=== PATIENT | female | born 1935 | race Caucasian/White ===

== ENCOUNTER → 2016-11-29 | Outpatient (CLI) | payer BC, OTHER ==
[~2016-11-29] MED LIST: ASCO10003 PO; BIOTCAP2 PO; CALC-279; CALC600T37 PO; CALCTAB5 PO; CARV25TA2 PO; CHOL1CAP57 PO; COEN100C7 PO; CYAN10005 PO; GLUCTAB7 PO; IODI1TAB PO; LISI-725 PO; MAGN200T3 PO; MAGN400T6 PO; MAGNESIUM PO; MISCCAP8 PO; MULT-770 PO; NIAC1TAB3 PO; OMEG10007 PO; PANT40TA PO; PRAMCRE2 TOP; RHOD300C PO; SENNTAB23 PO; SIMV40TA2 PO; THIA100T11 PO; VITATAB19 PO; WARF2TAB PO; ZINC30TA3 PO; [UNRECOGNIZED DRUG - CODE] PO; [UNRECOGNIZED DRUG - OTHER] PO; strontium citrate PO
== END | disposition home or self-care (01) ==
LOC: C.RDSM 13:15
PROVIDERS: ATTEND Physical Medicine & Rehabilitation Sports Medicine
DX: M16.12 Unilateral primary osteoarthritis, left hip (principal); Z96.642 Presence of left artificial hip joint

== ENCOUNTER → 2016-12-06 | Outpatient (CLI) | payer BC ==
[2016-12-06 12:19] LABS: URINE APPEARANCE CLEAR (CLEAR); URINE BILIRUBIN NEG (NEG); URINE COLOR DK YELLOW; URINE EPITHELIAL CELL AUTO 20-30 /lpf (0-5); URINE NITRITE NEG (NEG); URINE PH 6.5 (4.5-7.5); URINE SPECIFIC GRAVITY 1.027 (1.000-1.030); UROBILINOGEN NEG (NEG)
[2016-12-06 12:20] LABS: MANUAL MICROSCOPIC REQUIRED? NO; REVIEW REQ? NO
[2016-12-06 12:57] LABS: URINE PROTIEN/CREAT RATIO 0.1 (0-0.2); URINE TOTAL PROTEIN 17.1 mg/dl (0-11.9)
[2016-12-06 13:34] LABS: BLOOD UREA NITROGEN 29 mg/dl (7-18); BUN/CREATININE RATIO 22.6 (10-20); CARBON DIOXIDE 32 mmol/L (21-32); CHLORIDE 102 mmol/L (98-107); GLUCOSE 93 mg/dl (70-99); POTASSIUM 4.6 mmol/L (3.5-5.1); SODIUM 140 mmol/L (136-145)
[2016-12-06 13:35] LABS: PHOSPHORUS 4.1 mg/dl (2.5-4.9)
[2016-12-06 13:37] LABS: CALCIUM 9.5 mg/dl (8.5-10.1)
== END | disposition home or self-care (01) ==
LOC: C.LAB 10:53
PROVIDERS: ATTEND Internal Medicine Nephrology
DX: N18.3 Chronic kidney disease, stage 3 (moderate) (principal)

== ENCOUNTER → 2017-02-07 | Outpatient (CLI) | payer BC ==
[~2017-02-07] MED LIST changes: +OPTIRAY 320 IV PRN
--- NOTE | 2017-02-07 14:14 | DIAGNOSTIC IMAGING REPORT ---
ABDOMEN AND PELVIS CT WITH IV AND ORAL CONTRAST CT DOSE: 543.36 mGycm HISTORY: Follow-up follicular lymphoma. TECHNIQUE: Multiaxial CT images of the abdomen and pelvis were performed following the use of intravenous and oral contrast. COMPARISON STUDY: Abdomen and pelvis CT 07/12/2016. FINDINGS: The lung bases are essentially clear. Left total hip arthroplasty. No suspicious lytic or blastic osseous lesions. Severe central canal narrowing at the L4-5 level with associated grade I anterolisthesis. This is also unchanged. Small hiatus hernia. Stable 1.5 cm hypodense lesion within segment 2 of the liver. The gallbladder is decompressed. The spleen is normal in size. Normal adrenal glands. Stable bilateral renal hypodense lesions within largest in the upper pole the left kidney measuring 1 cm. No hydronephrosis. Multiple small calcified mesenteric lymph nodes, unchanged. No retroperitoneal or mesenteric lymphadenopathy. The uterus is surgically absent. Bladder is now well-visualized due to the metallic artifact from the left hip prosthesis. Colonic diverticulosis. No definite bowel wall thickening or obstruction. Normal appendix. No pelvic lymphadenopathy. Stable 1 cm cystic lesion within the body of the pancreas. There is also stable 7 mm cystic lesion within the pancreatic tail. IMPRESSION: No change compared to the prior study. No pathologically enlarged lymph nodes. Additional findings as described above. Electronically signed by: Dick Charles M.D. 02/07/2017 2:12 PM Dictated Date/Time: 02/07/2017 2:05 PM
== END | disposition home or self-care (01) ==
LOC: C.CTS 13:03
PROVIDERS: ATTEND Nurse Practitioner Family
DX: C82.20 Follicular lymphoma grade III, unspecified, unspecified site (principal)

== ENCOUNTER → 2017-02-09 | Outpatient (CLI) | payer BC ==
[~2017-02-09] MED LIST changes: -OPTIRAY 320 IV PRN
[2017-02-09 13:23] LABS: BASO % 0.2 %; BASO ABS # 0.01 K/uL (0-0.2); COMPLETE YES; EOS % 1.9 %; IG% 0.2 %; LYMPH % 10.9 %; LYMPH ABS # 0.64 K/uL (1.2-3.4); MEAN CELL VOLUME 95.6 fL (80-100); MEAN CORPUSCULAR HEMOGLOBIN 31.3 pg (25-34); MEAN CORPUSCULAR HGB CONC 32.7 g/dl (32-36); MEAN PLATELET VOLUME 10.3 fL (7.4-10.4); MONO % 9.5 %; NEUT % 77.3 %; PLATELET COUNT 187 K/uL (130-400); RED BLOOD COUNT 3.87 M/uL (4.2-5.4); WHITE BLOOD COUNT 5.89 K/uL (4.8-10.8)
[2017-02-09 14:06] LABS: ALT/SGPT 31 U/L (12-78); BLOOD UREA NITROGEN 26 mg/dl (7-18); BUN/CREATININE RATIO 21.8 (10-20); CARBON DIOXIDE 29 mmol/L (21-32); CHLORIDE 103 mmol/L (98-107); GLUCOSE 100 mg/dl (70-99); POTASSIUM 4.1 mmol/L (3.5-5.1); SODIUM 141 mmol/L (136-145)
[2017-02-09 14:09] LABS: CALCIUM 9.2 mg/dl (8.5-10.1)
[2017-02-09 14:10] LABS: ALB/GLOB RATIO 1.2 (0.9-2); ALKALINE PHOSPHATASE 60 U/L (45-117); AST/SGOT 21 U/L (15-37)
== END | disposition home or self-care (01) ==
LOC: C.LAB1850 11:27
PROVIDERS: ATTEND Internal Medicine
DX: C82.20 Follicular lymphoma grade III, unspecified, unspecified site (principal); M81.0 Age-related osteoporosis without current pathological fracture

== ENCOUNTER 2017-03-28 12:32 | Emergency (ER) | payer BC ==
[~2017-03-28] VITALS: Ht 157.5 cm; Wt 58.0 kg
[~2017-03-28 12:32] MED LIST changes: -CALC-279; -CALC600T37 PO; -COEN100C7 PO; -GLUCTAB7 PO; -MAGN400T6 PO; -MISCCAP8 PO; -MULT-770 PO; -OMEG10007 PO; -RHOD300C PO; -[UNRECOGNIZED DRUG - CODE] PO; -strontium citrate PO
[2017-03-28 12:35] VITALS: TEMP 36.8; Ht 157.5 cm; Wt 58.0 kg
[2017-03-28] MEDS ORDERED: LIDOCAINE/EPINEPH/TETRACAINE 1 EA SYR EXT SCH (13:00)
--- NOTE | 2017-03-28 13:13 | DIAGNOSTIC IMAGING REPORT ---
CT HEAD WITHOUT CONTRAST (CT) CLINICAL HISTORY: Closed head injury. Head pain. Laceration above the right eyebrow. COMPARISON STUDY: 06/10/2015 TECHNIQUE: Axial CT of the brain is performed from the vertex to the skull base. IV contrast was not administered for this examination. A dose lowering technique was utilized adhering to the principles of ALARA. CT DOSE: 537.48 mGy.cm FINDINGS: No intra or extra-axial mass lesions are visualized. There is no CT evidence of acute cortical infarction. There is no evidence of midline shift. There is no acute hemorrhage. No calvarial fractures are visualized. There are patchy white matter hypodensities likely on a small vessel basis. There is no evidence of pathologic ventricular dilatation. There is no evidence of acute sinusitis. 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 IMPRESSION: No acute intracranial findings Electronically signed by: Sascha Guzman M.D. 03/28/2017 1:12 PM Dictated Date/Time: 03/28/2017 1:10 PM
[2017-03-28] MEDS ORDERED: CALC600T37 PO (13:38)
[2017-03-28] MEDS ORDERED: MAGN400T6 PO (13:38)
--- NOTE | 2017-03-28 14:05 | EMERGENCY ROOM VISIT NOTE ---
ED Visit Note First contact with patient: 12:45 I have personally evaluated this patient examined her and reviewed the pertinent labs and data. I have discussed the case with Brennan Rogers, the physician executive assistant to general counsel and agree with the plan. Please refer to the PA note This patient suffered a mechanical fall. She has a small laceration lateral to her right eye. On my exam she has intact neurologic exam was exception of some mild aphasia which she says is been chronic and her doctor has worked her up for an think. She had a stroke several months ago there are no new neurologic deficits today. Laceration repaired and she was discharged home.
[2017-03-28 14:38] VITALS: BP 158/88; PULSE 57; O2SAT 97
--- NOTE | 2017-03-28 15:56 | EMERGENCY ROOM VISIT NOTE ---
History First contact with patient: 12:45 Chief Complaint: FALL Stated Complaint: FALL History of Present Illness The patient is a 81 year old female who presents to the Emergency Room with her with complaints of injuries after she tripped on a sheet in her bathroom and fell, striking her head on a toilet. The injury happened approximately 35 minutes prior to arrival. She denies any loss of consciousness , but does report a right frontal headache, and laceration to her right eyebrow. She denies any neck pain, extremity pain or other injuries from this fall. The patient does not take any blood thinners. She rates her discomfort a 5 out of 10. She has not taken any medicine for her pain. Review of Systems 10 system review was performed and was negative except for pertinent positives and negatives as indicated in history of present illness Past Medical/Surgical History Medical Problems: (1) DJD (degenerative joint disease) of hip (2) Hypertension (3) Non Hodgkin's lymphoma (4) Spinal stenosis Family History Omitted due to age Social History Smoking Status: Never Smoker Drug Use: none Marital Status: Housing Status: lives with significant other Occupation Status: retired Current/Historical Medications Scheduled Ascorbic Acid (Vitamin C), 1 TAB PO QAM Biotin (Biotin 5000), 5 MG PO QAM Calcium (Calcium), 1,200 MG PO DAILY Carvedilol (Coreg), 25 MG PO BID Cholecalciferol (Vitamin D3), 2,000 UNITS PO QAM Cyanocobalamin (Vitamin B-12), 1,000 MCG PO QAM Iodine (Kelp) (Kelp), 225 MG PO QAM Lisinopril (Zestril), 10 MG PO BID Magnesium (Magnesium), 1 TABS PO TIDM Magnesium Oxide (Mag-Ox), 400 MG PO HS Niacinamide (Niacin), 500 MG PO QPM Pantoprazole (Protonix), 40 MG PO Q2D Sennosides-Docusate Sodium (Stool Softener), 1 TAB PO PRN Thiamine Hcl (Vitamin B-1), 100 MG PO QPM Vitamin A-Beta Carotene (Vitamin A), 10,000 UNITS PO Q2D Zinc Gluconate (Zinc), 30 MG PO QPM [Stronium Citrate], 1 TAB PO TID Physical Exam Vital Signs Date Time Temp Pulse Resp B/P (MAP) Pulse Ox O2 Delivery O2 Flow Rate FiO2 8// 14:38 57 17 158/88 97 03/28/17 12:35 36.8 71 18 156/92 97 Physical Exam CONSTITUTIONAL: Healthy and well nourished. Alert and oriented X 3 with positive affect. GCS 15. The patient does not appear in any acute distress. HEENT: Examination shows a 2 cm laceration lateral to the right eyebrow. It is vertical in orientation without any active bleeding or hematoma formation. The patient has no focal tenderness to palpation of the temporal bone or periorbital region. Pupils equal, round and reactive. EOMs intact without evidence for entrapment. No epistaxis, hemotympanum, raccoon's eyes or Asher sign. NECK: Full active range of motion without discomfort. RESPIRATORY: Clear to auscultation bilaterally with no wheezing, crackles, rhonchi or stridor. CARDIOVASCULAR: Regular rate and rhythm with no murmurs, rubs or gallops. MUSCULOSKELETAL: Full range of motion of all joints without discomfort. INTEGUMENTARY: No rash or other significant dermatologic conditions noted. NEUROLOGIC: No focal neurologic deficits noted. Normal finger to nose test. Negative pronator drift. Facial sensations are intact. Medical Decision & Procedures ER Provider Diagnostic Interpretation: Noncontrast CT of the head does not show any acute fractures or intracranial bleed. Radiologist report is as follows: CT HEAD WITHOUT CONTRAST (CT) CLINICAL HISTORY: Closed head injury. Head pain. Laceration above the right eyebrow. COMPARISON STUDY: 06/10/2015 TECHNIQUE: Axial CT of the brain is performed from the vertex to the skull base. IV contrast was not administered for this examination. A dose lowering technique was utilized adhering to the principles of ALARA. CT DOSE: 537.48 mGy.cm FINDINGS: No intra or extra-axial mass lesions are visualized. There is no CT evidence of acute cortical infarction. There is no evidence of midline shift. There is no acute hemorrhage. No calvarial fractures are visualized. There are patchy white matter hypodensities likely on a small vessel basis. There is no evidence of pathologic ventricular dilatation. There is no evidence of acute sinusitis. 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 IMPRESSION: No acute intracranial findings Medications Administered Medications (Trade) Dose Ordered Sig/Kishor Route Start Time Stop Time Status Last Admin Dose Admin Tetracaine/ Epinephrine/ Lidocaine (L.e.t. Gel 4%/ 1:100/0.5%) 1 ea ONE EXT 03/28/17 13:00 03/28/17 14:56 DC 03/28/17 12:59 1 EA Procedure Laceration repair was performed under local anesthesia, and after receiving verbal consent from the patient. LET gel was applied. After adequate anesthesia, the peripheral tissue was then cleansed with iodine, then the wound was irrigated with normal saline. Good hemostasis was maintained. The wound was then approximated using 6-0 nylon simple interrupted sutures. Bacitracin was applied to the wound. ED Course Patient history and physical exam were performed. Nurse's notes were reviewed. Vital signs were reviewed, showing an elevated blood pressure of 156/92. The patient does report a history of hypertension. She was instructed to follow-up with her PCP for blood pressure recheck. The patient refused any analgesics. Noncontrast CT of the head was normal. Laceration repair was performed under local anesthesia. The patient was provided additional verbal and written wound care instructions. Ice for swelling. Tylenol as needed for pain. Suture removal in 5-7 days, or seek reevaluation sooner for any signs of infection. The patient was happy with plan of care, and denied any discomfort at the time of discharge. The patient was also seen and examined by Dr. Quiros, ED attending physician, who agrees with workup and plan of care. Medical Decision Head Trauma GCS Score: 15 Medication Reconcilliation Current Medication List: was personally reviewed by me Impression Primary Impression: Facial laceration Additional Impressions: Fall from slip, trip, or stumble Elevated blood pressure reading in office with diagnosis of hypertension Departure Information Referrals Nj Rod M.D. (PCP) Patient Instructions My [facility] Problem Qualifiers Primary Impression: Facial laceration Encounter type: initial encounter Qualified Codes: S01.81XA - Laceration without foreign body of other part of head, initial encounter Additional Impressions: Fall from slip, trip, or stumble Encounter type: initial encounter Qualified Codes: W01.0XXA - Fall on same level from slipping, tripping and stumbling without subsequent striking against object, initial encounter
[2017-04-12] MEDS ORDERED: CALC-279 (13:27)
[2017-04-12] MEDS ORDERED: [UNRECOGNIZED DRUG - CODE] PO (13:27)
[2017-04-12] MEDS ORDERED: COEN100C7 PO (13:27)
[2017-04-12] MEDS ORDERED: OMEG10007 PO (13:27)
[2017-04-12] MEDS ORDERED: GLUCTAB7 PO (13:27)
[2017-04-12] MEDS ORDERED: strontium citrate PO (13:27)
[2017-04-12] MEDS ORDERED: PANT40TA PO (13:27)
[2017-04-12] MEDS ORDERED: RHOD300C PO (13:27)
[2017-04-12] MEDS ORDERED: MISCCAP8 PO (13:27)
[2017-04-12] MEDS ORDERED: MULT-770 PO (13:27)
== END 2017-03-28 14:41 | disposition home or self-care (01) ==
LOC: C.EDB 12:32 → C.EDD 14:41
DX: S01.81XA Laceration without foreign body of other part of head, initial encounter (principal); W01.198A Fall on same level from slipping, tripping and stumbling with subsequent striking against other object, initial encounter; Y92.002 Bathroom of unspecified non-institutional (private) residence as the place of occurrence of the external cause; R03.0 Elevated blood-pressure reading, without diagnosis of hypertension; I10 Essential (primary) hypertension; Z85.72 Personal history of non-Hodgkin lymphomas; Z79.899 Other long term (current) drug therapy

== ENCOUNTER → 2017-04-12 | Outpatient (CLI) | payer BC ==
[~2017-04-12] MED LIST changes: +CALC-279; +CALC600T37 PO; -CALCTAB5 PO; +COEN100C7 PO; +GLUCTAB7 PO; +MAGN400T6 PO; -MAGNESIUM PO; +MISCCAP8 PO; +MULT-770 PO; +OMEG10007 PO; -PRAMCRE2 TOP; +RHOD300C PO; -SIMV40TA2 PO; -WARF2TAB PO; +[UNRECOGNIZED DRUG - CODE] PO; +strontium citrate PO
[2017-04-12 13:07] VITALS: BP 118/72; PULSE 76; TEMP 37.2; O2SAT 96
--- NOTE | 2017-04-12 17:27 | Radiation Oncology Follow-Up ---
Radiation Oncology Follow-Up Date of Visit Apr 12, 2017. Reason For Visit Annual follow-up Radiation Completion Date 2012 Diagnosis (1) Non Hodgkin's lymphoma Status: Resolved Onset Date: 03/2013 Permanent Comment: Abnormal abdominal CT revealing a left periaortic mass encasing the left renal vein Biopsy positive for follicular lymphoma Status post completion of radiation therapy 06/15/2013. She received 3600 cGy Status post maintenance Rituxan Last Edited By: Caren Kumar on Apr 12, 2017 17:20 History of Present Illness Ms. Barbosa is a 81-year-old female who presented in October of this year to Dr. Rod with a complaint of symptoms of an upper respiratory tract infection. A chest x-ray was taken on November 17, 2012. This showed bilateral thickening of the apices and possible interstitial infiltrate or scarring on the right. A chest CT scan was performed on November 24, 2012. This showed scattered right greater than left subpleural areas of nodularity or scarring with bilateral apical scarring. With no evidence of focal infiltrate in the right upper lung. An irregular focal infiltrate versus scarring or atypical atelectasis was noted in the medial right lower lobe. Followup studies were recommended. A repeat CT scan of the chest was taken on February 28, 2013. This showed interval resolution of the previously described right lower lobe air space opacity. However, the left periaortic mass-like abnormality was noted encasing the left renal vein. This measured approximately 3.9 x 2.5 cm. This was suspicious for neoplastic process such as lymphoma or metastatic disease. A CT scan of the abdomen and pelvis was recommended. A stable subcentimeter pancreatic tail lesion was noted. This was a low suspicious lesion. On March 06, 2013, a CT scan of the abdomen and pelvis with IV contrast was performed. The pancreas showed a 9 mm water attenuation lesion. The lower chest was unremarkable. A moderate hiatal hernia was noted. The liver was unremarkable with a 1.6 cm cyst in the lateral left lobe. Gallbladder, spleen, were unremarkable as was the adrenal glands. The kidneys were unremarkable as was the bowel and peritoneum. The retroperitoneum, however, revealed an irregular soft tissue lesion in the left retroperitoneal space encasing approximately 50% of the circumference of the abdominal aorta as well as the left renal artery and vein. There are mildly enlarged retroperitoneal lymph nodes seen more inferiorly. Pelvis and skeletal structures are unremarkable. These lesions were suspicious for a neoplasm and a biopsy was recommended. Given the location of this lesion. They patient was felt to be better served going to [place] for a biopsy. This was performed on April 03, 2013. The soft tissue from the left periaortic mass fine needle aspiration biopsy revealed atypical lymphocytes. A core needle biopsy revealed a B-cell non-Hodgkin's lymphoma low grade. Flow studies were performed. 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 The patient was subsequently treated with radiation therapy in May 2013 and has been on maintenance Rituxan. Interim History She has been doing well over the past year in regards to the prior treatment. She denies any abdominal pain or discomfort. She's had no nausea or vomiting. No problems with change in bowel habits. She has been followed by medical oncology and has had recheck scanning. She had a CT of the abdomen and pelvis 02/07/2017. This showed no change compared to prior study. No pathologically enlarged lymph nodes. Allergies Coded Allergies: NEYMAR Inhibitors (Verified Allergy, Unknown, PER RECORDS- PT HAS NO RECOLLECTION- TOLERATES LISINOPRIL, 04/07/16) Naproxen (Verified Allergy, Unknown, RASH, 04/07/16) Raloxifene (Verified Allergy, Unknown, COUGH, 04/07/16) Home Medications Scheduled Ascorbic Acid (Vitamin C), 1 TAB PO QAM Biotin (Biotin 5000), 1,000 MG PO QAM Carvedilol (Coreg), 25 MG PO BID Cholecalciferol (Vitamin D3), 1,000 UNITS PO QAM Coenzyme Q10 (Ubidecarenone) (Coq10), 120 MG PO DAILY Fish Oil (Greenbush-3), 1 CAP PO BID Kjwtsialrvz-Srqogvlbvwq-Eeo C- (Glucosamine Chondroitin), 2 TAB PO BID Iodine (Kelp) (Kelp), 225 MG PO QAM Lisinopril (Zestril), 10 MG PO BID Magnesium Oxide (Mag-Ox), 400 MG PO HS Misc Natural Products (Tart Rios Advanced), 465 MG PO DAILY Multiple Minerals W/ Vitamins (Calcium Citrate Plus/Magn), 1 TAB PO DAILY Niacinamide (Niacin), 250 MG PO QPM Pantoprazole (Protonix), 80 MG PO Q2D Rhodiola Rosea (Rhodiola), 800 MG PO BID Sennosides-Docusate Sodium (Stool Softener), 1 TAB PO PRN Vitamin A Acetate (Bulk) (Vitamin A Acetate), 8,000 UNITS PO DAILY Zinc Gluconate (Zinc), 30 MG PO QPM [Stronium Citrate], 1 TAB PO TID [strontium citrate], 350 MG PO DAILY Miscellaneous Medications Calcium Citrate-Vitamin D (Calcium Citrate + D) Review of Systems Gastrointestinal: Symptoms: Constipation, Rectal Bleeding GI Comments: Takes a magnesium tablet to manage constipation;Hemorrhoids per pt Oral: Symptoms: No Problems Respiratory: Symptoms: WNL Urinary: Symptoms: WNL Skin: Symptoms: No Problems Physical Exam Vital Signs Date Time Temp Pulse Resp B/P (MAP) Pulse Ox O2 Delivery O2 Flow Rate FiO2 04/12/17 13:07 37.2 76 16 118/72 96 Pain: Patient Pain Scale: 0 - 10 Initial Pain Intensity: 0.0 Fatigue: None General Appearance: no apparent distress, + pertinent finding (it is noted that the patient speaks very slowly. Stops frequently between words. She does answer questions accurately.) Eyes: normal inspection, EOMI ENT: normal ENT inspection, hearing grossly normal Neck: no adenopathy Respiratory/Chest: lungs clear, no respiratory distress, no accessory muscle use Cardiovascular: regular rate, rhythm, no gallop, no murmur Abdomen: non tender, soft, no organomegaly Extremities: no pedal edema Neurologic/Psychiatric: no motor/sensory deficits, alert, normal mood/affect Skin: warm/dry Laboratory Studies Test 02/09/17 11:35 White Blood Count 5.89 K/uL (4.8-10.8) Red Blood Count 3.87 M/uL (4.2-5.4) Hemoglobin 12.1 g/dL (12.0-16.0) Hematocrit 37.0 % (37-47) Mean Corpuscular Volume 95.6 fL (80-100) Mean Corpuscular Hemoglobin 31.3 pg (25-34) Mean Corpuscular Hemoglobin Concent 32.7 g/dl (32-36) Platelet Count 187 K/uL (130-400) Mean Platelet Volume 10.3 fL (7.4-10.4) Neutrophils (%) (Auto) 77.3 % Lymphocytes (%) (Auto) 10.9 % Monocytes (%) (Auto) 9.5 % Eosinophils (%) (Auto) 1.9 % Basophils (%) (Auto) 0.2 % Neutrophils # (Auto) 4.56 K/uL (1.4-6.5) Lymphocytes # (Auto) 0.64 K/uL (1.2-3.4) Monocytes # (Auto) 0.56 K/uL (0.11-0.59) Eosinophils # (Auto) 0.11 K/uL (0-0.5) Basophils # (Auto) 0.01 K/uL (0-0.2) RDW Standard Deviation 47.6 fL (36.4-46.3) RDW Coefficient of Variation 13.6 % (11.5-14.5) Immature Granulocyte % (Auto) 0.2 % Immature Granulocyte # (Auto) 0.01 K/uL (0.00-0.02) Sodium Level 141 mmol/L (136-145) Potassium Level 4.1 mmol/L (3.5-5.1) Chloride Level 103 mmol/L (98-107) Carbon Dioxide Level 29 mmol/L (21-32) Anion Gap 9.0 mmol/L (3-11) Blood Urea Nitrogen 26 mg/dl (7-18) Creatinine 1.20 mg/dl (0.60-1.20) Estimated GFR () 48.4 Estimated GFR (Non- 41.8 BUN/Creatinine Ratio 21.8 (10-20) Random Glucose 100 mg/dl (70-99) Calcium Level 9.2 mg/dl (8.5-10.1) Total Bilirubin 0.5 mg/dl (0.2-1) Aspartate Amino Transferase (AST) 21 U/L (15-37) Alanine Aminotransferase (ALT) 31 U/L (12-78) Alkaline Phosphatase 60 U/L (45-117) Lactate Dehydrogenase 240 U/L (84-246) Total Protein 7.2 gm/dl (6.4-8.2) Albumin 3.9 gm/dl (3.4-5.0) Globulin 3.3 gm/dl (2.5-4.0) Albumin/Globulin Ratio 1.2 (0.9-2) Assessment & Plan Plan: Continue regular follow-up with her primary care physician and medical oncology. We did discuss the change in the status of mentation. She states that she has noticed that she does talk slower. This was pointed out to her by other physicians. She questions the possibility of a previous CVA. She is unsure as to when the slow speech began. She did recently fall and have an injury to the head. CT scan was negative for intracranial hemorrhage. I question her as to whether he had noticed a change. He unfortunately also has memory difficulties. He does not recall change in her speech. She is seeing Dr. Rod next week. She plans discuss this with him at her next visit. Total Time In Follow-Up I spent 20 minutes speaking to the patient and performing examination. I spent 15 minutes reviewing information in completing this note. Copy To Nj Rod M.D.; Roman Alejandro MD
== END | disposition home or self-care (01) ==
LOC: C.ONC 12:50
PROVIDERS: ATTEND Physician Assistant Medical
DX: Z08 Encounter for follow-up examination after completed treatment for malignant neoplasm (principal); Z92.3 Personal history of irradiation; Z85.72 Personal history of non-Hodgkin lymphomas

== ENCOUNTER → 2017-04-18 | Outpatient (CLI) | payer BC ==
[~2017-04-18] MED LIST changes: -CALC600T37 PO; -CYAN10005 PO; -MAGN200T3 PO; -THIA100T11 PO; -VITATAB19 PO
[2017-04-18 09:37] LABS: BASO % 0.5 %; BASO ABS # 0.02 K/uL (0-0.2); COMPLETE YES; EOS % 1.8 %; HEMATOCRIT 37.6 % (37-47); LYMPH % 12.7 %; LYMPH ABS # 0.56 K/uL (1.2-3.4); MEAN CELL VOLUME 96.4 fL (80-100); MEAN CORPUSCULAR HEMOGLOBIN 30.8 pg (25-34); MEAN CORPUSCULAR HGB CONC 31.9 g/dl (32-36); MEAN PLATELET VOLUME 10.1 fL (7.4-10.4); MONO % 15.2 %; NEUT % 69.8 %; PLATELET COUNT 188 K/uL (130-400); WHITE BLOOD COUNT 4.42 K/uL (4.8-10.8)
[2017-04-18 10:01] LABS: ESTIMATED AVERAGE GLUCOSE 126 mg/dl; HA1C FLAG Normal (Normal)
[2017-04-18 10:02] LABS: ALT/SGPT 17 U/L (12-78); BLOOD UREA NITROGEN 25 mg/dl (7-18); BUN/CREATININE RATIO 20.9 (10-20); CALCIUM 9.1 mg/dl (8.5-10.1); CARBON DIOXIDE 30 mmol/L (21-32); CHLORIDE 102 mmol/L (98-107); CHOLESTEROL 270 mg/dl (0-200); GLUCOSE 99 mg/dl (70-99); POTASSIUM 4.1 mmol/L (3.5-5.1); SODIUM 139 mmol/L (136-145)
[2017-04-18 10:12] LABS: ALB/GLOB RATIO 1.1 (0.9-2); ALKALINE PHOSPHATASE 65 U/L (45-117); AST/SGOT 13 U/L (15-37); CHOLESTEROL/HDL RATIO 5.4; HDL CHOLESTEROL 50 mg/dl; LDL CHOLESTEROL CALCULATED 190 mg/dl; TRIGLYCERIDES 152 mg/dl (0-150); VERY LOW DENSITY LIPOPROT CALC 30 mg/dl
--- NOTE | 2017-04-28 08:04 | CODING QUERY MEDICAL NECESSITY ---
CQSUPPORTING DIAGNOSIS NEEDED A supporting diagnosis is required for the test/procedure performed on this patient in order for us to be reimbursed by the patient's insurance. Please provide a supporting diagnosis for the following test/procedure listed below next to the test name along with your signature. *If there is no additional diagnosis for this patient that would support the following test/procedure please document that below next to the test/procedure. Test(s)/Procedure(s) that require a supporting diagnosis: DOS 04/18/17 GLYCATED HEMOGLOBIN TEST BLOOD COUNT TEST LIPID TEST THYROID TEST Provider Signature: Date: Thank you Tessie Griffiths Health Information Management Once completed, please kindly fax back to [phone] For questions please call [phone]
== END | disposition home or self-care (01) ==
LOC: C.LAB1850 08:18
PROVIDERS: ATTEND Internal Medicine
DX: M81.0 Age-related osteoporosis without current pathological fracture (principal); R73.01 Impaired fasting glucose; I10 Essential (primary) hypertension; E78.5 Hyperlipidemia, unspecified; C85.90 Non-Hodgkin lymphoma, unspecified, unspecified site

== ENCOUNTER → 2017-04-29 | Outpatient (CLI) | payer BC ==
--- NOTE | 2017-04-29 16:17 | DIAGNOSTIC IMAGING REPORT ---
BRAIN WITHOUT CONTRAST HISTORY: Visual change. Trauma. PARKINSONISM TECHNIQUE: Multiplanar multisequence MRI of the brain was performed without the use of contrast. COMPARISON STUDY: 11/15/2013 FINDINGS: There are no areas of restricted diffusion to suggest acute infarction. The midline structures are intact. The paranasal sinuses are clear. The mastoid air cells are clear. The ventricles and sulci are within normal limits for age. There is no mass, hematoma, midline shift. The major vascular flow-voids at the skull base are well maintained. Chronic small vessel change unaltered from the prior study. IMPRESSION: Age-related change. Mild chronic small vessel change. No acute process. No change from the prior study. The above report was generated using voice recognition software. It may contain grammatical, syntax or spelling errors. Electronically signed by: Barber Donato M.D. 04/29/2017 4:15 PM Dictated Date/Time: 04/29/2017 4:13 PM
== END | disposition home or self-care (01) ==
LOC: C.MRIBC 14:33
PROVIDERS: ATTEND Internal Medicine
DX: G20 Parkinson's disease (principal)

== ENCOUNTER 2017-12-08 19:33 | Emergency (ER) | payer BC ==
[~2017-12-08] VITALS: Ht 157.5 cm; Wt 57.8 kg
[2017-12-08 19:50] VITALS: TEMP 36.8; Ht 157.5 cm; Wt 57.8 kg
[2017-12-08] MEDS ORDERED: PROPARACAINE HCL 0.5% OP SOLN 15 ML BTL ONE (20:05)
[2017-12-08] MEDS ORDERED: CIPROFLOXACIN HCL 0.3% OP SOLN 2.5 ML BTL OP STA (20:33)
[2017-12-08 20:59] VITALS: BP 157/91; PULSE 86; O2SAT 98
--- NOTE | 2017-12-08 22:25 | EMERGENCY ROOM VISIT NOTE ---
History Report prepared by Yosi: Lainey Montilla Under the Supervision of: Dr. Nahun Bernardo M.D. First contact with patient: 19:54 Chief Complaint: EYE ASSESSMENT Stated Complaint: RT EYE REDNESS, SOMETHING IN IT History of Present Illness The patient is an 82 year old female who presents to the Emergency Room with complaints of persistent right eye pain starting this afternoon. The patient reports that she put contacts in her eyes around 1515 today. Her right eye then started bothering her. She later tried to take the contact out, but removed only half of the contact. She is unsure where the other half went. She reports redness to her eye. She denies any headache, facial swelling, ear trouble, neck pain, breathing difficulty, or other complaints. She has a history of cataract surgery and dementia. The patient was at her orthopedic appointment and there was concerns that she may have a retained foreign body in the eye. She was directed to the ER. Source of History: patient, spouse/significant other Onset: this afternoon Position: eye (right) Quality: other (redness, pain) Timing: other (persistent) Associated Symptoms: No headache Review of Systems See HPI for pertinent positives and negatives. A total of six systems were reviewed and were otherwise negative. Past Medical & Surgical Medical Problems: (1) DJD (degenerative joint disease) of hip (2) Hypertension (3) Non Hodgkin's lymphoma (4) Spinal stenosis Family History Omitted due to age Social History Smoking Status: Never Smoker Drug Use: none Marital Status: Housing Status: lives with significant other Occupation Status: retired Current/Historical Medications Scheduled Ascorbic Acid (Vitamin C), 1 TAB PO QAM Biotin (Biotin 5000), 1,000 MG PO QAM Carvedilol (Coreg), 25 MG PO BID Cholecalciferol (Vitamin D3), 1,000 UNITS PO QAM Coenzyme Q10 (Ubidecarenone) (Coq10), 120 MG PO DAILY Fish Oil ([place]-3), 1 CAP PO BID Hwidurrbdwy-Zvrrfumbijo-Chw C- (Glucosamine Chondroitin), 2 TAB PO BID Iodine (Kelp) (Kelp), 225 MG PO QAM Lisinopril (Zestril), 10 MG PO BID Magnesium Oxide (Mag-Ox), 400 MG PO HS Misc Natural Products ([place] Advanced), 465 MG PO DAILY Multiple Minerals W/ Vitamins (Calcium Citrate Plus/Magn), 1 TAB PO DAILY Niacinamide (Niacin), 250 MG PO QPM Pantoprazole (Protonix), 80 MG PO Q2D Rhodiola Rosea (Rhodiola), 800 MG PO BID Sennosides-Docusate Sodium (Stool Softener), 1 TAB PO PRN Vitamin A Acetate (Bulk) (Vitamin A Acetate), 8,000 UNITS PO DAILY Zinc Gluconate (Zinc), 30 MG PO QPM [Stronium Citrate], 1 TAB PO TID [strontium citrate], 350 MG PO DAILY Miscellaneous Medications Calcium Citrate-Vitamin D (Calcium Citrate + D) Allergies Coded Allergies: NEYMAR Inhibitors (Verified Allergy, Unknown, PER RECORDS- PT HAS NO RECOLLECTION- TOLERATES LISINOPRIL, 04/07/16) Naproxen (Verified Allergy, Unknown, RASH, 04/07/16) Raloxifene (Verified Allergy, Unknown, COUGH, 04/07/16) Physical Exam Vital Signs Date Time Temp Pulse Resp B/P (MAP) Pulse Ox O2 Delivery O2 Flow Rate FiO2 12/08/17 20:59 86 20 157/91 98 12/08/17 19:50 36.8 79 18 192/105 95 Room Air Physical Exam GENERAL: Awake, alert, well-appearing, in no distress HENT: Normocephalic, atraumatic. Oropharynx unremarkable. EYES: Scleral injection present on the right side. Right pupil is 6 mm and reactive. Left pupil is 3 mm and reactive. Skin around the eye is normal. NECK: Supple. No nuchal rigidity. FROM. No masses. NEURO: Normal sensorium. No sensory or motor deficits noted. SKIN: No rash or jaundice noted. Medical Decision & Procedures Medications Administered Medications (Trade) Dose Ordered Sig/Kishor Route Start Time Stop Time Status Last Admin Dose Admin Ciprofloxacin HCl (Ciprofloxacin 0.3% Op Soln) 1 drops NOW STAT OP 12/08/17 20:33 12/08/17 20:34 DC 12/08/17 20:47 1 DROPS Procedure Slit Lamp Examination Indication: eye pain, suspected foreign body The right eye was prepped with topical proparacaine. Slit lamp examination was performed in the standard fashion. Cornea appeared clear. Anterior chamber normal. Scleral injection was present. No discharge present. Fluorescein examination performed and revealed abrasions at 12 o'clock position, minimal punctate uptake along the 6-7 o'clock at lateral edge of cornea. Part of the torn contact noted. Negative Abe sign. The patient tolerated the procedure well without complication. Foreign body removal: Half of a contact piece removed with fluorescein and slit lamp by me in the standard fashion without complication. Patient tolerated this very well and felt better afterwards. Puff tonometry: IOP was average 11.5 bilaterally. ED Course 2002: The patient was evaluated in room D4B. A complete history and physical exam was performed. Slit lamp examination, foreign body removal, and puff tonometry was performed as above. I discussed results and discharge instructions : they verbalized understanding and agreement. The patient is ready for discharge. 2032: Ciprofloxacin HCl 1 drop OP. Medical Decision Prior records/ancillary studies reviewed. Triage Nursing notes reviewed and agree them. Additional history obtained from her The patient's history was concerning for eye complaints. Differential diagnosis: Etiologies such as~a trauma, corneal abrasion, corneal ulcer, foreign body, globe penetration, hyphema, hypopyon, and orbital cellulitis, periorbital cellulitis, glaucoma, as well as others were entertained. Physical examination findings: As above.~ Slit-lamp examination revealed corneal abrasion, scleral injection, and a retained foreign body ER treatment provided: Foreign body removal Proparacaine Cipro ophthalmic Patient is doing very well. She has had cataract surgery in the past. She definitely has irritation of her eye. There was asymmetry of her pupils but she has no headache or other neurologic complaints at this time. She will need close outpatient follow-up with her skiver heel tap. She will call the office tomorrow. By the evaluation outlined above emergent etiologies such as glaucoma, corneal ulcer, globe penetration, hyphema, hypopyon, and orbital cellulitis, periorbital cellulitis, as well as others were deemed relatively unlikely. The patient and were informed about the findings as listed above. All questions were answered and they were pleased with the treatment. Return instructions were outlined and the patient was discharged in stable condition. Outpatient prescription management: Cipro Referral: The patient was referred to ophthalmology for follow-up for a recheck of the current condition. Medication Reconcilliation Current Medication List: was personally reviewed by me Blood Pressure Screening Patient's blood pressure: Elevated blood pressure Blood pressure disposition: Elevated BP felt to be situational Impression Primary Impression: Corneal abrasion Additional Impression: Foreign body of right eye Scribe Attestation The scribe's documentation has been prepared under my direction and personally reviewed by me in its entirety. I confirm that the note above accurately reflects all work, treatment, procedures, and medical decision making performed by me. Departure Information Dispostion Home / Self-Care Referrals Nj Rod M.D. (PCP) Raji Timmons M.D. Forms HOME CARE DOCUMENTATION FORM, IMPORTANT VISIT INFORMATION, WORK / SCHOOL INSTRUCTIONS Patient Instructions My [facility] Additional Instructions Cipro eyedrops: One drop to affected eye(s) every 3 hours while awake for 3-5 days. If you are still having symptoms even may need to extend usage. Stop using if you develop severe pain or swelling. Return to the ER for evaluation. Acetaminophen(Tylenol) may be used for fever or pain. Use 1000mg every six hours as needed. Avoid using more than 4000mg in a 24 hour period. Cool compresses for 20 minutes at a time four times daily for 2-3 days. Avoid bright lights tomorrow, wear sun glasses. Return to the ER for facial swelling, worsening vision, severe eye pain, fevers or as needed. Follow-up with your skiver heel tap, Dr. Wick's office tomorrow. Call them first thing in the morning to arrange the follow-up. Problem Qualifiers
== END 2017-12-08 21:59 | disposition home or self-care (01) ==
LOC: C.EDB 19:35 → C.EDD 21:59
DX: S05.01XA Injury of conjunctiva and corneal abrasion without foreign body, right eye, initial encounter (principal); T15.91XA Foreign body on external eye, part unspecified, right eye, initial encounter; X58.XXXA Exposure to other specified factors, initial encounter; Y92.9 Unspecified place or not applicable; I10 Essential (primary) hypertension; Z85.72 Personal history of non-Hodgkin lymphomas; M48.00 Spinal stenosis, site unspecified; Z79.899 Other long term (current) drug therapy; Z88.8 Allergy status to other drugs, medicaments and biological substances

== ENCOUNTER → 2018-04-12 | Outpatient (CLI) | payer BC ==
[~2018-04-12] MED LIST changes: -CALC-279; +CALC-279 PO; +MULT-506 PO
[2018-04-12 13:19] VITALS: BP 147/91; PULSE 75; TEMP 36.7; O2SAT 97
--- NOTE | 2018-04-12 14:54 | Radiation Oncology Follow-Up ---
Radiation Oncology Follow-Up Date of Visit Apr 12, 2018. Reason For Visit Annual follow-up Radiation Completion Date finished 06-15-2013 Diagnosis (1) Non Hodgkin's lymphoma Status: Chronic Onset Date: 03/2013 Location: Now has a new mass below the sternal notch Permanent Comment: Abnormal abdominal CT revealing a left periaortic mass encasing the left renal vein Biopsy positive for follicular lymphoma Status post completion of radiation therapy 06/15/2013. She received 3600 cGy Status post maintenance Rituxan Last Edited By: Caren Kumar on Apr 12, 2017 17:20 History of Present Illness Ms. Barbosa presented to Dr. Rod with a complaint of symptoms of an upper respiratory tract infection. A chest x-ray was taken on November 17, 2012. This showed bilateral thickening of the apices and possible interstitial infiltrate or scarring on the right. A chest CT scan was performed on November 24, 2012. This showed scattered right greater than left subpleural areas of nodularity or scarring with bilateral apical scarring. With no evidence of focal infiltrate in the right upper lung. An irregular focal infiltrate versus scarring or atypical atelectasis was noted in the medial right lower lobe. Followup studies were recommended. A repeat CT scan of the chest was taken on February 28, 2013. This showed interval resolution of the previously described right lower lobe air space opacity. However, the left periaortic mass-like abnormality was noted encasing the left renal vein. This measured approximately 3.9 x 2.5 cm. This was suspicious for neoplastic process such as lymphoma or metastatic disease. A CT scan of the abdomen and pelvis was recommended. A stable subcentimeter pancreatic tail lesion was noted. This was a low suspicious lesion. On March 06, 2013, a CT scan of the abdomen and pelvis with IV contrast was performed. The pancreas showed a 9 mm water attenuation lesion. The lower chest was unremarkable. A moderate hiatal hernia was noted. The liver was unremarkable with a 1.6 cm cyst in the lateral left lobe. Gallbladder, spleen, were unremarkable as was the adrenal glands. The kidneys were unremarkable as was the bowel and peritoneum. The retroperitoneum, however, revealed an irregular soft tissue lesion in the left retroperitoneal space encasing approximately 50% of the circumference of the abdominal aorta as well as the left renal artery and vein. There are mildly enlarged retroperitoneal lymph nodes seen more inferiorly. Pelvis and skeletal structures are unremarkable. These lesions were suspicious for a neoplasm and a biopsy was recommended. Given the location of this lesion. They patient was felt to be better served going to [facility] for a biopsy. This was performed on April 03, 2013. The soft tissue from the left periaortic mass fine needle aspiration biopsy revealed atypical lymphocytes. A core needle biopsy revealed a B-cell non-Hodgkin's lymphoma low grade. Flow studies were performed. 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 The patient was subsequently treated with radiation therapy in May 2013 and has been on maintenance Rituxan. Interim History Approximately 2 weeks ago the patient's daughter noticed that she has a lump in the central lower neck/ upper chest area. She denies any pain. She has noticed no changes of the overlying skin. She denies any difficulty with swallowing. There has been no increasing fatigue. She denies night sweats. Her daughter is a nurse. She stated that she was going to try to set up appointment for her with a physician in [place]. She is now moved to [facility]. She plans to change all her health care to physicians in the [facility]. Allergies Coded Allergies: NEYMAR Inhibitors (Verified Allergy, Unknown, PER RECORDS- PT HAS NO RECOLLECTION- TOLERATES LISINOPRIL, 04/07/16) Naproxen (Verified Allergy, Unknown, RASH, 04/07/16) Raloxifene (Verified Allergy, Unknown, COUGH, 04/07/16) Home Medications Scheduled Calcium Citrate-Vitamin D (Calcium Citrate + D), 2 TABS PO DAILY Carvedilol (Coreg), 25 MG PO BID Cholecalciferol (Vitamin D3), 1,000 UNITS PO QAM Fish Oil ([place]-3), 1 CAP PO BID Lisinopril (Zestril), 10 MG PO BID Magnesium Oxide (Mag-Ox), 2 TABS PO HS Multivitamin (Multivitamin), 2 TAB PO DAILY Review of Systems Gastrointestinal: Symptoms: WNL Oral: Symptoms: No Problems Respiratory: Symptoms: WNL Urinary: Symptoms: Nocturia Comments: nocturia times 2 - 3, has stress incontinence at times Skin: Symptoms: No Problems Physical Exam Vital Signs Date Time Temp Pulse Resp B/P (MAP) Pulse Ox O2 Delivery O2 Flow Rate FiO2 04/12/18 13:19 36.7 75 18 147/91 97 Fatigue: None General Appearance: no apparent distress Eyes: normal inspection, EOMI Neck: + adenopathy present, + pertinent finding (She has a visible raised mass just below the sternal notch. This measures 6 x 3.5 cm. There is firm and fixed. There are no changes of the overlying skin. There is no tenderness in this area. Mild lymphadenopathy is appreciated in the submental area bilaterally.) Respiratory/Chest: lungs clear, no respiratory distress, no accessory muscle use Cardiovascular: regular rate, rhythm, no gallop, no murmur Abdomen: non tender, soft, no organomegaly Extremities: no pedal edema Neurologic/Psychiatric: no motor/sensory deficits, alert, normal mood/affect Skin: warm/dry Lymphatic: no adenopathy Pain Management Patient Reports Pain: No Side: Bilateral Patient Preferred Pain Scale: 0 - 10 Initial Pain Intensity: 0.0 Pain Management Plan She denies pain therefore requires no pain management. Laboratory Laboratory Results: not applicable Pathology Pathology Results: were reviewed, and pertinent findings noted in HPI Imaging Imaging Studies: not applicable Assessment & Plan Plan: Spoke to the patient as well as her daughter. She is planning to change all of her care to physicians in [place]. Her daughter had been working on an appointment with Dr. Abreu. She had not heard back from his office. We will call their office to try to review her case and obtain an appointment. I spoke with Marianne and explained to her that further testing and treatment would now be through Dr. Abreu's office. She was in agreement with this arrangement. A follow-up appointment with our office was not given. We discussed should he recommended radiation that it would be performed in [place] now that she is living at [facility]. Her daughter will be notified with the date and time for an appointment with Dr. Abreu. Total Time In Follow-Up I spent 20 minutes speaking to the patient in performing examination. I spent 15 minutes reviewing information and completing this note. AK Copy To Nj Rod M.D.; Barber Abreu M.D.; Roman Alejandro MD Problem Qualifiers (1) Non Hodgkin's lymphoma: Non-Hodgkin lymphoma type: follicular Lymphoma site: intra-abdominal nodes
== END | disposition home or self-care (01) ==
LOC: C.ONC 13:07
PROVIDERS: ATTEND Physician Assistant Medical
DX: Z08 Encounter for follow-up examination after completed treatment for malignant neoplasm (principal); Z92.3 Personal history of irradiation; Z85.72 Personal history of non-Hodgkin lymphomas